=== PATIENT | female | born 1955 | race Caucasian/White ===

== ENCOUNTER 2020-10-28 11:10 | Emergency (ER) | payer BC ==
[2020-10-28 11:27] VITALS: BP 160/89; PULSE 63
--- NOTE | 2020-10-28 11:30 | EDM.PDOC ---
ED HPI GENERAL MEDICAL PROBLEM - General Chief Complaint: Cardiovascular Problem Stated Complaint: HIGH BLOOD PRESSURE Time Seen by Provider: 10/28/20 11:28 Source of Information: Reports: Patient, RN Notes Reviewed History Limitations: Reports: No Limitations - History of Present Illness INITIAL COMMENTS - FREE TEXT/NARRATIVE: Patient is a 65-year-old female who presents to the ED for her elevated blood pressure readings. The patient works at [employer], and notes that this morning she had a pressure to the back of her head, and began to feel lightheaded/dizzy, so she had a coworker check her blood pressure at work, and this was found to be 160 systolically. Patient notes that her blood pressure seems to run in the 110-120 systolically. So she thought this was quite elevated for her. She does not have a history of hypertension so she is not sure what would be causing this. She has no increased stress at work. She did have COVID-19 in July, and notes that she had pretty mild symptoms, she lost her sense of taste and smell, and had felt extremely fatigued but did not get the associated shortness of breath and hypoxia. Patient states that she still has some of the brain fog, and fatigue from recovering from COVID-19. And she appreciated a right sided throat pain this morning, the patient notes that this happened roughly 1 week ago, with similar feelings but she did not check her blood pressure at that time. Patient notes that she decided to come in today because her father at age 55, was thought to have had a heart attack and c rashed his plane. She denies any fevers or chills, cough or shortness of breath. Patient notes that the headache is more of just a pressure/annoyance. She has an appointment to see her eye doctor, in November for ongoing eye issues. Posterior Headache Pain Score (Numeric/FACES): 4 - Related Data Allergies Allergy/AdvReac Type Severity Reaction Status Date / Time atorvastatin [From Lipitor] Allergy Irritabilit Verified 10/28/20 11:27 y Home Meds: Home Meds Calcium Carbonate [Calcium] 600 mg PO DAILY 10/28/20 [History] Celecoxib [CeleBREX] 200 mg PO DAILY PRN 10/28/20 [History] Cholecalciferol (Vitamin D3) [Vitamin D3] 2,000 unit PO DAILY 10/28/20 [History] Escitalopram [Lexapro] 15 mg PO DAILY 10/28/20 [History] Ferrous Sulfate [Iron] 325 mg PO DAILY 10/28/20 [History] Lutein 20 mg PO DAILY 10/28/20 [History] Pravastatin [Pravachol] 40 mg PO DAILY 10/28/20 [History] Ubidecarenone [Co Q-10] 10 mg PO DAILY 10/28/20 [History] Past Medical History Cardiovascular History: Reports: High Cholesterol - Infectious Disease History Infectious Disease History: Reports: Novel Coronavirus (jul 2020) Social & Family History - Tobacco Use Tobacco Use Status *Q: Never Tobacco User - Recreational Drug Use Recreational Drug Use: No ED ROS GENERAL - Review of Systems Review Of Systems: Comprehensive ROS is negative, except as noted in HPI. ED EXAM, GENERAL - Physical Exam Exam: See Below Exam Limited By: No Limitations General Appearance: Alert, WD/WN, No Apparent Distress Eye Exam: Bilateral Eye: EOMI, Normal Inspection, PERRL Throat/Mouth: Normal Inspection, Normal Lips, Normal Teeth, Normal Gums, Normal Oropharynx, Normal Voice, No Airway Compromise Head: Atraumatic, Normocephalic Neck: Normal Inspection, Supple, Non-Tender, Full Range of Motion Respiratory/Chest: No Respiratory Distress, Lungs Clear, Normal Breath Sounds, No Accessory Muscle Use, Chest Non-Tender Cardiovascular: Normal Peripheral Pulses, Regular Rate, Rhythm, No Murmur Peripheral Pulses: 2+: Radial (L), Radial (R) GI/Abdominal: Normal Bowel Sounds, Soft, Non-Tender, No Distention, No Mass Extremities: Normal Inspection, Normal Capillary Refill Neurological: Alert, Oriented, Normal Cognition, No Motor/Sensory Deficits Psychiatric: Normal Affect, Normal Mood Skin Exam: Warm, Dry, Intact, Normal Color, No Rash #1 Interpretation EKG Date: 10/28/20 Time: 11:55 Rhythm: NSR (sinus lorin) Rate (Beats/Min): 55 [place]: LAD-Left Brewerton Deviation (-16 ) P-Wave: Present QRS: Normal ST-T: Normal QT: Normal Comparison: NA - No Prior EKG EKG Interpretation Comments: No obvious ischemia or acute ST changes noted, reviewed by myself and Dr. Foster. 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 He also appreciated some T wave flattening in aVF. Course - Vital Signs Last Recorded V/S: Last Vital Signs Temp 97.3 F 10/28/20 11:23 Pulse 63 10/28/20 11:23 Resp 16 10/28/20 11:23 BP 160/89 H 10/28/20 11:23 Pulse Ox 94 L 10/28/20 11:23 - Orders/Labs/Meds Orders: Active Orders 24 hr Category Date Time Status EKG Documentation Completion [RC] STAT Care 10/28/20 11:40 Active Labs: Laboratory Tests 10/28/20 10/28/20 10/28/20 Range/Units 12:15 12:15 12:15 WBC 4.69 (3.98-10.04) K/mm3 RBC 4.03 (3.98-5.22) M/mm3 Hgb 11.7 (11.2-15.7) gm/dl Hct 36.7 (34.1-44.9) % MCV 91.1 (79.4-94.8) fl MCH 29.0 (25.6-32.2) pg MCHC 31.9 L (32.2-35.5) g/dl RDW Std Deviation 45.1 (36.4-46.3) fL Plt Count 233 (182-369) K/mm3 MPV 10.1 (9.4-12.3) fl Neut % (Auto) 65.5 (34.0-71.1) % Lymph % (Auto) 19.0 L (19.3-51.7) % Jennings % (Auto) 9.6 (4.7-12.5) % Eos % (Auto) 5.3 (0.7-5.8) Baso % (Auto) 0.4 (0.1-1.2) % Neut # (Auto) 3.07 (1.56-6.13) K/mm3 Lymph # (Auto) 0.89 L (1.18-3.74) K/mm3 Jennings # (Auto) 0.45 H (0.24-0.36) K/mm3 Eos # (Auto) 0.25 (0.04-0.36) K/mm3 Baso # (Auto) 0.02 (0.01-0.08) K/mm3 PT 10.9 (9.7-12.0) SECONDS INR 1.02 APTT 25.4 (21.7-31.4) SECONDS Sodium 139 (136-145) mEq/L Potassium 4.2 (3.5-5.1) mEq/L Chloride 103 (98-107) mEq/L Carbon Dioxide 28 (21-32) mEq/L Anion Gap 12.2 (5-15) BUN 20 H (7-18) mg/dL Creatinine 0.9 (0.55-1.02) mg/dL Est Cr Clr Drug Dosing 53.81 mL/min Estimated GFR (MDRD) > 60 (>60) mL/min BUN/Creatinine Ratio 22.2 H (14-18) Glucose 95 (80-115) mg/dL Calcium 9.5 (8.5-10.1) mg/dL Magnesium 1.9 (1.8-2.4) mg/dl Total Bilirubin 0.2 (0.2-1.0) mg/dL AST 18 (15-37) U/L ALT 29 (14-59) U/L Alkaline Phosphatase 75 (46-116) U/L Troponin I < 0.017 (0.00-0.056) ng/mL NT-Pro-B Natriuret Pep (0-125) pg/mL Total Protein 7.1 (6.4-8.2) g/dl Albumin 4.1 (3.4-5.0) g/dl Globulin 3.0 gm/dL Albumin/Globulin Ratio 1.4 (1-2) /17/20 Range/Units 12:15 WBC (3.98-10.04) K/mm3 RBC (3.98-5.22) M/mm3 Hgb (11.2-15.7) gm/dl Hct (34.1-44.9) % MCV (79.4-94.8) fl MCH (25.6-32.2) pg MCHC (32.2-35.5) g/dl RDW Std Deviation (36.4-46.3) fL Plt Count (182-369) K/mm3 MPV (9.4-12.3) fl Neut % (Auto) (34.0-71.1) % Lymph % (Auto) (19.3-51.7) % Jennings % (Auto) (4.7-12.5) % Eos % (Auto) (0.7-5.8) Baso % (Auto) (0.1-1.2) % Neut # (Auto) (1.56-6.13) K/mm3 Lymph # (Auto) (1.18-3.74) K/mm3 Jennings # (Auto) (0.24-0.36) K/mm3 Eos # (Auto) (0.04-0.36) K/mm3 Baso # (Auto) (0.01-0.08) K/mm3 PT (9.7-12.0) SECONDS INR APTT (21.7-31.4) SECONDS Sodium (136-145) mEq/L Potassium (3.5-5.1) mEq/L Chloride (98-107) mEq/L Carbon Dioxide (21-32) mEq/L Anion Gap (5-15) BUN (7-18) mg/dL Creatinine (0.55-1.02) mg/dL Est Cr Clr Drug Dosing mL/min Estimated GFR (MDRD) (>60) mL/min BUN/Creatinine Ratio (14-18) Glucose (80-115) mg/dL Calcium (8.5-10.1) mg/dL Magnesium (1.8-2.4) mg/dl Total Bilirubin (0.2-1.0) mg/dL AST (15-37) U/L ALT (14-59) U/L Alkaline Phosphatase (46-116) U/L Troponin I (0.00-0.056) ng/mL NT-Pro-B Natriuret Pep 40 (0-125) pg/mL Total Protein (6.4-8.2) g/dl Albumin (3.4-5.0) g/dl Globulin gm/dL Albumin/Globulin Ratio (1-2) - Re-Assessments/Exams Free Text/Narrative Re-Assessment/Exam: 10/28/20 11:44 Patient presents to the ER for the evaluation of her elevated blood pressure reading at home. For today's purposes we will get a EKG, get baseline labs, to rule out any major cardiac anomalies. Patient blood pressure did improve from 160/89 140 systolically while being in the ER. 10/28/20 13:21 Patient's labs have been completed, and demonstrate no focal abnormalities. Patient be discharged home with general recommendations. Departure - Departure Time of Disposition: 13:21 Disposition: Home, Self-Care 01 Condition: Good Clinical Impression: Elevated blood pressure reading in office without diagnosis of hypertension Instructions: Preventing Hypertension Referrals: Myra Medrano NP [Primary Care Provider] - Forms: ED Department Discharge, ED Return to Work/School Form Additional Instructions: You were evaluated in the ER today for your elevated blood pressure readings. EKG, chest x-ray, and labs done at today's visit are all unremarkable, you are not suffering from a heart attack at today's visit. I would recommend that you monitor your blood pressure at home, at least 2 times a day, and record these numbers down to see if these are in fact decreasing or staying elevated, and then take these numbers to your primary care provider, for the possibility of starting blood pressure medications if your blood pressure seems to stay elevated. Please return to the ER at any time if symptoms change or worsen. Sepsis Event Note (ED) - Evaluation Sepsis Screening Result: No Definite Risk - Focused Exam Vital Signs: Vital Signs Temp Pulse Resp BP Pulse Ox 10/28/20 11:23 97.3 F 63 16 160/89 H 94 L - My Orders Last 24 Hours: My Active Orders 10/28/20 11:40 EKG Documentation Completion [RC] STAT - Assessment/Plan Last 24 Hours: My Active Orders 10/28/20 11:40 EKG Documentation Completion [RC] STAT
--- NOTE | 2020-10-28 12:20 | CR ---
Chest: PA and lateral views of the chest were obtained. Comparison: No prior chest imaging is available. Heart size and mediastinum are normal. Lungs are clear with no acute parenchymal change. Bony structures show slight degenerative change without acute abnormality. Impression: 1. Nothing acute is seen. Diagnostic code #2
== END 2020-10-28 13:30 | disposition home or self-care (01) ==
LOC: JD.ED 11:10
DX: R03.0 Elevated blood-pressure reading, without diagnosis of hypertension (principal); E78.00 Pure hypercholesterolemia, unspecified; Z79.899 Other long term (current) drug therapy; Z88.8 Allergy status to other drugs, medicaments and biological substances
CPT/HCPCS: 36415; 71046; 71046-26; 80053; 83735; 83880; 84484; 85025; 85610; 85730; 93005; 93010; 99283; 99284-25